=== PATIENT | female | born 1950 | race Caucasian/White ===

== ENCOUNTER 2020-02-01 18:26 | Emergency (ER) | payer MEDICARE ==
[~2020-02-01] VITALS: Ht 157.5 cm; Wt 49.9 kg
[~2020-02-01 18:26] MED LIST: CALCIUM 500 +1 EAC5 PO; CIPROFLOXACIN500 M1 PO; FISH OIL 1,001000 M2 PO; FLAGYL500 MG PO; FOSAMAX 70 MG T70 MG PO; HYDROCODON-ACE1 EACH PO; NORCO 5-325 TA1 EACH PO; ULTRAM 50MG TAB50 MG PO
[2020-02-01 19:40] LABS: ABSOLUTE EOSINOPHILS 0.1 thou/uL (0.0-0.7); ABSOLUTE LYMPHOCYTES 2.1 thou/uL (0.8-5.3); ABSOLUTE MONOCYTES 0.4 thou/uL (0.0-1.2); ABSOLUTE NEUTROPHILS 2.5 thou/uL (1.6-8.1); BASOPHILS 0.4 %; EOSINOPHILS 2.2 %; HEMATOCRIT 39.9 % (37.0-47.0); HEMOGLOBIN 13.4 gm/dL (12.0-15.0); LYMPHOCYTES 40.8 %; MCH 31.6 pg (26.0-34.0); MCHC 33.7 g/dL (28.0-37.0); MCV 93.7 fL (80.0-100.0); MONOCYTES 8.4 %; MPV 8.2 fl. (7.2-11.1); NUCLEATED RBCS 0 /100WBC; PLATELET COUNT* 230 thou/uL (150-400); POLYS 48.2 %; RBC 4.26 mil/uL (4.20-5.00); RDW-CV 12.8 % (10.5-14.5); WBC 5.2 thou/uL (4.0-11.0)
[2020-02-01 19:47] LABS: CALCIUM 9.2 mg/dL (8.5-10.1); CREATININE 0.8 mg/dL (0.6-1.3); POTASSIUM 3.2 mmol/L (3.5-5.1)
[2020-02-01 22:00] VITALS: BP 152/73
== END 2020-02-01 22:00 | disposition short-term general hospital (02) ==
LOC: M.ERS 18:26
PROVIDERS: Personal Emergency Response Attendant
DX: S02.69XA Fracture of mandible of other specified site, initial encounter for closed fracture (principal); S01.511A Laceration without foreign body of lip, initial encounter; Z20.828 Contact with and (suspected) exposure to other viral communicable diseases; W18.39XA Other fall on same level, initial encounter; Y93.89 Activity, other specified; Y92.098 Other place in other non-institutional residence as the place of occurrence of the external cause; Y99.8 Other external cause status

== ENCOUNTER 2020-02-11 08:54 | Emergency (ER) | payer MEDICARE ==
[~2020-02-11] VITALS: Ht 154.9 cm; Wt 49.9 kg
[2020-02-11 09:00] VITALS: BP 150/64
[2020-02-11] MEDS ORDERED: CALCIUM500 MG PO (09:04)
[2020-02-11] MEDS ORDERED: PREVACID30 MG PO (09:04)
== END 2020-02-11 09:30 | disposition home or self-care (01) ==
LOC: M.ERS 08:54
DX: S01.511D Laceration without foreign body of lip, subsequent encounter (principal); X58.XXXD Exposure to other specified factors, subsequent encounter